=== PATIENT | male | born 1940 | race Caucasian/White ===

== ENCOUNTER → 2019-03-01 | Outpatient (CLI) | payer MEDICARE ==
[~2019-03-01] MED LIST: AMIO200T42 PO; AMIO400T5 PO; ASPI-496 PO; CLOP75TA52 PO; DOCU-131 PO; FURO-92 PO; GLUC1CAP48 PO; ISOS30TA21 PO; LISI-167 PO; METO25TA35 PO; MULT-516 PO; OXYC-302 PO; POTA20TA91 PO; ROSU10TA2 PO
[2019-03-01 13:05] LABS: CHLORIDE 109 mmol/L (98-107)
[2019-03-01 13:14] LABS: ALANINE AMINOTRANSFERASE 41 U/L (12-78); ALBUMIN 3.9 g/dL (3.4-5.0); ALKALINE PHOSPHATASE 72 U/L (45-117); ANION GAP 7 mmol/L (5-15); BILIRUBIN,TOTAL 0.8 mg/dL (0.2-1.0); CALCIUM 8.8 mg/dL (8.5-10.1); CHOL/HDL RATIO 2.4; CHOLESTEROL, TOTAL 116 mg/dL (140-239); CREATININE 1.15 mg/dL (0.7-1.3); HDL CHOL % 41 % (26-37); HDL CHOLESTEROL (DIRECT) 48 mg/dL (40-60); LDL CHOLESTEROL,CALCULATED 46 mg/dL (54-169); TRIGLYCERIDES 111 mg/dL (50-200); VLDL CHOLESTEROL 22 mg/dL (0-25)
== END | disposition home or self-care (01) ==
LOC: CFH 10:26
PROVIDERS: ATTEND Internal Medicine Cardiovascular Disease
DX: E78.2 Mixed hyperlipidemia (principal); I10 Essential (primary) hypertension; I25.810 Atherosclerosis of coronary artery bypass graft(s) without angina pectoris; I48.0 Paroxysmal atrial fibrillation
CPT/HCPCS: 36415; 80053; 80061

== ENCOUNTER 2020-11-19 11:49 | Emergency (ER) | payer MEDICARE ==
[~2020-11-19] VITALS: Ht 182.9 cm; Wt 104.6 kg
[~2020-11-19 11:49] MED LIST changes: -OXYC-302 PO; +OXYC1TAB14 PO
--- NOTE | 2020-11-19 12:33 | NUR ---
80 YO MALE CAME IN WITH COMPLAINTS OF NECK PAIN AND NECK STIFFNESS. PATIENT STATES HE TRIPPED OVER SOME WOOD PLANTS AND BUMPED HIS HEAD AND "TWEEKED HIS NECK". NO LOSS OF CONCIOUSNESS AFTER FALL OR NEUROLOGIC SYMPTOMS. PATIENT STATES PAIN IS 4/10 WHEN HE MOVES HIS HEAD. PA STUDENT [place] AT BEDSIDE FOR EVALUATION. PATIENT HOOKED UP TO MONITORS, POSITIONED TO COMFORT, VSS, NADN.
--- NOTE | 2020-11-19 13:00 | NUR ---
patient rounded on, vss, nadn
--- NOTE | 2020-11-19 14:22 | NUR ---
patient with neck brace resting flat on back, vss, reneen
[2020-11-19 15:09] VITALS: BP 156/79
--- NOTE | 2020-11-19 15:29 | NUR ---
Patient/Caregiver given discharge instructions and they have confirmed that they understand the instructions. Patient ambulatory with steady gait.
== END 2020-11-19 15:32 | disposition home or self-care (01) ==
LOC: ED 13:13
DX: S12.01XA Stable burst fracture of first cervical vertebra, initial encounter for closed fracture (principal); S09.90XA Unspecified injury of head, initial encounter; I10 Essential (primary) hypertension; I25.10 Atherosclerotic heart disease of native coronary artery without angina pectoris; W01.0XXA Fall on same level from slipping, tripping and stumbling without subsequent striking against object, initial encounter; Y93.89 Activity, other specified; Y92.89 Other specified places as the place of occurrence of the external cause; Y99.8 Other external cause status
CPT/HCPCS: 70450; 72125; 99285

== ENCOUNTER → 2021-01-03 | Outpatient (CLI) | payer MEDICARE | END | disposition home or self-care (01) | LOC: CFH 13:38 | DX: S12.091D Other nondisplaced fracture of first cervical vertebra, subsequent encounter for fracture with routine healing (principal); M50.31 Other cervical disc degeneration, high cervical region; X58.XXXD Exposure to other specified factors, subsequent encounter | CPT/HCPCS: 72125 ==

== ENCOUNTER 2021-02-26 13:51 | Outpatient (CLI) | payer MEDICARE | END 2021-02-26 23:59 | disposition home or self-care (01) | LOC: CFH 13:51 | DX: S12.040D Displaced lateral mass fracture of first cervical vertebra, subsequent encounter for fracture with routine healing (principal); S12.091D Other nondisplaced fracture of first cervical vertebra, subsequent encounter for fracture with routine healing; M50.322 Other cervical disc degeneration at C5-C6 level; X58.XXXD Exposure to other specified factors, subsequent encounter | CPT/HCPCS: 72125 ==

== ENCOUNTER → 2021-03-18 | Outpatient (CLI) | payer MEDICARE | END | disposition home or self-care (01) | LOC: CFH 09:35 | DX: S12.001 Unspecified nondisplaced fracture of first cervical vertebra (principal); M85.80 Other specified disorders of bone density and structure, unspecified site; X58.XXXD Exposure to other specified factors, subsequent encounter | CPT/HCPCS: 77080 ==

== ENCOUNTER 2021-04-01 10:29 | Outpatient (CLI) | payer MEDICARE ==
[~2021-04-01 10:29] MED LIST changes: +OXYC1TAB12 PO; -OXYC1TAB14 PO
== END 2021-04-01 23:59 | disposition home or self-care (01) ==
LOC: CFH 10:29
DX: S12.001 Unspecified nondisplaced fracture of first cervical vertebra (principal); M85.80 Other specified disorders of bone density and structure, unspecified site; M48.02 Spinal stenosis, cervical region; X58.XXXD Exposure to other specified factors, subsequent encounter
CPT/HCPCS: 72125